=== PATIENT | female | born 1990 | race Caucasian/White ===

== ENCOUNTER 2019-10-29 10:08 | Emergency (ER) | payer MEDICAID ==
[~2019-10-29] VITALS: Ht 139.7 cm; Wt 64.9 kg
[2019-10-29 10:18] VITALS: BP 97/64
--- NOTE | 2019-10-29 10:32 | NUR ---
28 Y/O FEMALE C/O PAINFUL URINATION, INCREASE IN FREQUENCY, AND URGENCY X 1 WEEK. STATES 8/10 BURNING PAIN W/ URINATION. DENIES BLOOD IN URINE. DENIES ABD PAIN/N/V/D. SITTING UPRIGHT CALM AND PLEASANT. VSS. MEDHX: DENIES ALLERGIES: NKA
--- NOTE | 2019-10-29 12:26 | NUR ---
PT SITTING UPRIGHT AWAKE AND ALERT, RR EVEN AND UNLABORED. PT CALM AND PLEASANT. VSS. WILL CONTINUE TO MONITOR.
[2019-10-29 12:40] LABS: APPEARANCE,URINE CLEAR (CLEAR); BILIRUBIN,URINE NEGATIVE (NEGATIVE); BLOOD, URINE TRACE-I (NEGATIVE); COLOR,URINE YELLOW (YELLOW); LEUKOCYTE ESTERASE ,URINE TRACE (NEGATIVE); NITRITE, URINE NEGATIVE (NEGATIVE); UGLUCOSE NEGATIVE (NEGATIVE)
[2019-10-29 12:54] LABS: RBC,URINE NONE SEEN /HPF (0-5); WBC,URINE 0-5 /HPF (0-5)
[2019-10-29] MEDS ORDERED: cefTRIAXone 250 MG in LIDOCAINE MPF 1% 0.9 ML IM ONE (13:15)
[2019-10-29] MEDS ORDERED: cefTRIAXone 250 MG VIAL ONE (13:17)
[2019-10-29] MEDS ORDERED: LIDOCAINE MPF 1% 5 ML ONE (13:17)
--- NOTE | 2019-10-29 13:23 | NUR ---
PT D/C BEFORE MED RE-EVALUATED. STATES SHE HAS TAKEN MEDICATION BEFORE.
[2019-10-29 13:24] VITALS: BP 97/64
[2019-10-31 06:11] LABS: CHLAMYDIA TRACHOMATIS AMP DNA Negative (Negative)
== END 2019-10-29 13:24 | disposition home or self-care (01) ==
LOC: MED 10:08
DX: R30.0 Dysuria (principal); R30.9 Painful micturition, unspecified; Z98.890 Other specified postprocedural states
CPT/HCPCS: 36415; 81001; 81025; 84484; 87491; 96372; 99283; J0696; J2001

== ENCOUNTER 2021-11-26 16:54 | Emergency (ER) | payer MEDICAID ==
[~2021-11-26] VITALS: Ht 165.1 cm; Wt 70.8 kg
[2021-11-26 17:08] VITALS: BP 125/67
[2021-11-26] MEDS ORDERED: methylPREDNISolone SS 125 MG in WATER STERILE 2 ML IM ONE (17:15)
[2021-11-26] MEDS ORDERED: PRED20TA5 PO ×2 (17:17→19:09)
[2021-11-26] MEDS ORDERED: DIPH25TA53 PO ×2 (17:17→19:09)
[2021-11-26] MEDS ORDERED: WATER STERILE 10 ML MC ONE (17:33)
[2021-11-26] MEDS ORDERED: methylPREDNISolone SS 125 MG/2 ML VIAL ONE (17:33)
--- NOTE | 2021-11-26 17:40 | NUR ---
31YO F C/O GENERALIZED PRURITIC RASH SINCE LAST NIGHT. NO NEW EXPOSURES NOTED. DENIES DIFFICULTY BREATHING. PMH: GASTRITIS MEDS: NONE NKA
[2021-11-26 18:06] VITALS: BP 125/67
--- NOTE | 2021-11-26 18:06 | NUR ---
Patient discharged with v/s stable. Written and verbal after care instructions given and explained. Patient alert, oriented and verbalized understanding of instructions. Ambulatory with steady gait. All questions addressed prior to discharge. ID band removed. Patient advised to follow up with PMD. Rx of BENADRY, PREDNISONE given. Patient educated on indication of medication including possible reaction and side effects. Opportunity to ask questions provided and answered.
[2021-11-27] MEDS ORDERED: [UNRECOGNIZED DRUG - CODE] PO (19:42)
[2021-11-27] MEDS ORDERED: FAMO-90 PO (19:42)
== END 2021-11-26 18:00 | disposition home or self-care (01) ==
LOC: MED 16:54
DX: T78.40XA Allergy, unspecified, initial encounter (principal); Z79.899 Other long term (current) drug therapy; Z98.890 Other specified postprocedural states; X58.XXXA Exposure to other specified factors, initial encounter
CPT/HCPCS: 96372; 99283; J2930

== ENCOUNTER 2021-11-27 18:29 | Emergency (ER) | payer MEDICAID ==
[~2021-11-27] VITALS: Ht 157.5 cm; Wt 70.3 kg
[~2021-11-27 18:29] MED LIST: DIPH25TA53 PO; PRED20TA5 PO
[2021-11-27 19:09] VITALS: BP 103/72
[2021-11-27] MEDS ORDERED: FAMO-90 PO (19:42)
[2021-11-27] MEDS ORDERED: [UNRECOGNIZED DRUG - CODE] PO (19:42)
--- NOTE | 2021-11-27 20:04 | NUR ---
Patient discharged with v/s stable. Written and verbal after care instructions given and explained. Patient alert, oriented and verbalized understanding of instructions. Ambulatory with steady gait. All questions addressed prior to discharge. ID band removed. Patient advised to follow up with PMD. Rx of Pepcid, Loraratadine given. Patient educated on indication of medication including possible reaction and side effects. Opportunity to ask questions provided and answered.
== END 2021-11-27 20:04 | disposition home or self-care (01) ==
LOC: MED 18:29
DX: T78.40XA Allergy, unspecified, initial encounter (principal); R21 Rash and other nonspecific skin eruption; F41.9 Anxiety disorder, unspecified; Z79.899 Other long term (current) drug therapy; X58.XXXA Exposure to other specified factors, initial encounter
CPT/HCPCS: 99282

== ENCOUNTER 2024-03-30 13:43 | Emergency (ER) | payer MEDICAID ==
[~2024-03-30] VITALS: Ht 165.1 cm; Wt 70.8 kg
[~2024-03-30 13:43] MED LIST changes: +FAMO-90 PO; +[UNRECOGNIZED DRUG - CODE] PO
[2024-03-30 14:08] VITALS: BP_SYST 111; PULSE 79; RESP 16; TEMP 98; O2SAT 100
[2024-03-30] MEDS ORDERED: KETOROLAC 60 MG/2 ML VIAL IM ONE ×2 (14:30→15:30)
[2024-03-30 14:42] LABS: APPEARANCE,URINE CLEAR (CLEAR); BILIRUBIN,URINE NEGATIVE (NEGATIVE); BLOOD, URINE TRACE-I (NEGATIVE); COLOR,URINE YELLOW (YELLOW); LEUKOCYTE ESTERASE ,URINE NEGATIVE (NEGATIVE); NITRITE, URINE NEGATIVE (NEGATIVE); PROTEIN,URINE NEGATIVE (NEGATIVE); UGLUCOSE NEGATIVE (NEGATIVE); UROBILINOGEN,URINE 0.2 EU/dL (0.2 - 1)
[2024-03-30] MEDS ORDERED: SULF-58 PO (14:55)
[2024-03-30] MEDS ORDERED: IBUP-2213 PO (14:55)
[2024-03-30 15:56] VITALS: BP_SYST 111; PULSE 79; RESP 16; TEMP 98; O2SAT 100
== END 2024-03-30 15:56 | disposition home or self-care (01) ==
LOC: MED 13:43
DX: N39.0 Urinary tract infection, site not specified (principal); Z79.899 Other long term (current) drug therapy
CPT/HCPCS: 81003; 81025; 99283; J1885